=== PATIENT | female | born 1955 | race Caucasian/White ===

== ENCOUNTER → 2017-06-09 | Outpatient (CLI) | payer BC ==
[~2017-06-09] MED LIST: ALBUAER2 INH; ALG PO; AZEL0.056 NAE; CALC1TAB9 PO; CYCL0.052 OPB; ESTR10TA PV; FLAX10007 PO; MOME6000 NAE; MONT1TAB3 PO; PROB1CAP54 PO; PROP10TA7 PO; SUMA6KIT2 SQ; VLSO15 TOP
== END | disposition home or self-care (01) ==
LOC: C.PAPS 11:50
PROVIDERS: ATTEND Physician Assistant
DX: Z01.419 Encounter for gynecological examination (general) (routine) without abnormal findings (principal)

== ENCOUNTER → 2017-08-18 | Outpatient (CLI) | payer BC ==
[~2017-08-18] MED LIST changes: +GADAVIST IV PRN
[2017-08-18 08:41] LABS: ISTAT CREATININE 0.9 mg/dl (0.6-1.3); ISTAT HEMOGLOBIN 12.9 g/dl (12.0-16.0); ISTAT IONIZED CALCIUM 1.25 mmol/l (1.12-1.32)
--- NOTE | 2017-08-18 10:44 | DIAGNOSTIC IMAGING REPORT ---
MRI OF THE LEFT HAND COMBO CLINICAL HISTORY: Small palpable lump. Pain and numbness in the second and third digits. COMPARISON STUDY: No priors. TECHNIQUE: MRI of the left hand is performed utilizing various T1 and T2-weighted sequences in the axial, sagittal, and coronal planes. Contrast-enhanced sequences are acquired following the IV administration of 5 mL of Gadavist. The examination is modestly degraded by motion artifact. Note that interpretation is suboptimal without plain film correlate. FINDINGS: Normal marrow signal intensity is preserved throughout the visualized bony structures. There is no MRI evidence of fracture. Minimal arthritic change is seen at the first carpometacarpal articulation. No bony erosion is identified. A cutaneous marker has been placed along the dorsal aspect of the hand at the base of the second and third metacarpals. No underlying bony abnormality is seen. There is no soft tissue lesion or abnormal enhancement at this site. The visualized flexor and extensor tendons are normal in appearance. The regional musculature is normal in bulk and signal intensity. The subcutaneous soft tissues are normal as visualized. IMPRESSION: 1. No acute bony abnormality is identified. 2. No abnormality is seen at the indicated site of interest along the dorsal aspect of the second and third metacarpals. The palpable focus of concern may correspond to bony irregularity of the underlying metacarpal. Clinical correlation will be required. Dictated: 08/18/2017 9:40 AM Transcribed: 08/18/2017 10:43 AM [facility] Electronically signed by: Yuri Alonzo M.D. 08/18/2017 1:15 PM Dictated Date/Time: 08/18/2017 9:40 AM
== END | disposition home or self-care (01) ==
LOC: C.MRI 07:23
PROVIDERS: ATTEND Family Medicine
DX: M79.642 Pain in left hand (principal)

== ENCOUNTER → 2017-09-17 | Outpatient (CLI) | payer BC ==
[~2017-09-17] MED LIST changes: -GADAVIST IV PRN
--- NOTE | 2017-09-18 15:33 | MAMMOGRAPHY REPORT ---
BILATERAL DIGITAL SCREENING MAMMOGRAM TOMOSYNTHESIS WITH CAD: 09/17/2017 CLINICAL HISTORY: Routine screening. Patient has no complaints. TECHNIQUE: Breast tomosynthesis in addition to standard 2D mammography was performed. Current study was also evaluated with a Computer Aided Detection (CAD) system. COMPARISON: Comparison is made to exams dated: 09/16/2016 mammogram, 09/13/2015 mammogram, 4 mammogram, 09/08/2013 mammogram, 09/02/2012 mammogram, and 08/28/2011 mammogram - [facility]. BREAST COMPOSITION: The tissue of both breasts is extremely dense, which lowers the sensitivity of m ammography. FINDINGS: No suspicious masses, calcifications, or areas of architectural distortion are noted in ei ther breast. There has been no significant interval change compared to prior exams. Scattered bilater al benign-appearing calcifications are not significantly changed. There is stable architectural dist ortion within the right medial breast, which was previously marked with a linear scar marker on the 2 008 exam and is therefore compatible with postsurgical changes. IMPRESSION: ACR BI-RADS CATEGORY 2: BENIGN There is no mammographic evidence of malignancy. A 1 year screening mammogram is recommended. The pa tient will receive written notification of the results. Approximately 10% of breast cancers are not detected with mammography. A negative mammographic report should not delay biopsy if a clinically suggestive mass is present. Munira Aguirre M.D. /:09/17/2017 15:45:19 [employer] Manager: Myah EARLY(Concepcion)(Carlos)(MURRAY), [facility] letter sent: Normal 1/2 BI-RADS Code: ACR BI-RADS Category 2: Benign
== END | disposition home or self-care (01) ==
LOC: C.MAMM 15:07
PROVIDERS: ATTEND Obstetrics & Gynecology
DX: Z12.31 Encounter for screening mammogram for malignant neoplasm of breast (principal)